=== PATIENT | female | born 1990 | race Caucasian/White ===

== ENCOUNTER 2018-06-26 23:44 | Emergency (ER) | payer MEDICAID ==
[~2018-06-26] VITALS: Ht 165.1 cm; Wt 105.3 kg
[~2018-06-26 23:44] MED LIST: CLIN150C8 PO
[2018-06-27] MEDS ORDERED: HYDROcodone/acetaminophen 10/325mg tab PO ONE (00:25)
[2018-06-27 00:29] LABS: BASOPHILS # (AUTO) 0.1 X10'3 (0-0.2); BASOPHILS % (AUTO) 0.5 % (0-1); EOSINOPHILS # (AUTO) 0.2 X10'3 (0-0.9); HEMATOCRIT 40.5 % (35.0-45.0); HEMOGLOBIN 13.8 g/dl (12.0-16.0); LYMPHOCYTES # (AUTO) 3.3 X10'3 (1.1-4.8); LYMPHOCYTES % (AUTO) 33.7 % (21-51); MEAN CORPUSCULAR HEMOGLOBIN 30.6 PG (27.0-31.0); MEAN CORPUSCULAR HGB CONC 34.1 % (33.0-36.5); MEAN CORPUSCULAR VOLUME 89.9 FL (78-98); MEAN PLATELET VOLUME 8.4 FL (7.4-10.4); MONOCYTES # (AUTO) 0.5 X10'3 (0-0.9); MONOCYTES % (AUTO) 5.6 % (2-12); NEUTROPHILS # (AUTO) 5.7 X10'3 (1.8-7.7); NEUTROPHILS % (AUTO) 58.2 % (42-75); PLATELET COUNT 271 X10'3 (140-440); RED CELL DISTRIBUTION WIDTH 12.4 % (11.5-14.5); WHITE BLOOD COUNT 9.8 X10'3 (4.5-11.0)
[2018-06-27 00:32] LABS: CLARITY,URINE CLEAR (Clear); COLOR,URINE YELLOW (Yellow); GLUCOSE, URINE NEGATIVE (Neg); KETONES,URINE NEGATIVE (Neg); LEUKOCYTE ESTERASE ,URINE TRACE (Neg); NITRITES, URINE NEGATIVE (Neg); OCCULT BLOOD,URINE TRACE-INTACT (Neg); PROTEIN,URINE NEGATIVE (Neg); UROBILINOGEN,URINE 0.2 E.U/dL (0.2-1.0)
[2018-06-27 00:36] VITALS: BP 138/89
[2018-06-27 00:38] LABS: UA COLLECTION TYPE CLN CATCH MIDSTREAM
[2018-06-27 00:38] LABS: PROTHROMBIN TIME 9.9 SECONDS (9.0-12.0)
[2018-06-27 00:41] LABS: BACTERIA,URINE 2+ /HPF (Neg); SQUAMOUS EPITHELIAL CELL,UR MODERATE /LPF (FEW)
[2018-06-27 00:41] LABS: ALANINE AMINOTRANSFERASE 63 U/L (12-78); ALBUMIN 3.6 G/DL (3.4-5.0); ALBUMIN/GLOBULIN RATIO 1.1 (1.1-1.5); ALKALINE PHOSPHATASE 64 IU/L (46-116); ANION GAP 10 (8-16); ASPARTATE AMINO TRANSFERASE 26 U/L (10-37); BILIRUBIN,TOTAL 0.2 MG/DL (0.1-1.0); BLOOD UREA NITROGEN 13 MG/DL (7-18); BUN/CREATININE RATIO 18.1 (6.6-38.0); CALCIUM 8.7 MG/DL (8.5-10.1); CHLORIDE 103 MMOL/L (99-107); CREATININE 0.72 MG/DL (0.40-0.90); GLUCOSE 98 MG/DL (70-104); LIPASE 151 U/L (73-393); POTASSIUM 3.9 MMOL/L (3.5-5.1); SODIUM 139 MMOL/L (135-145); TOTAL CARBON DIOXIDE 26.1 MMOL/L (24-32); eGFR > 90 ML/MIN
[2018-06-27 00:42] LABS: RBC,URINE 0-2 /HPF (0-2); WBC,URINE 20-30 /HPF (0-4)
[2018-06-27] MEDS ORDERED: ondansetron/PF 4mg/2ml inj IV ONE (00:45)
== END 2018-06-27 01:10 | disposition home or self-care (01) ==
LOC: ER 23:44
DX: R10.30 Lower abdominal pain, unspecified (principal); F12.90 Cannabis use, unspecified, uncomplicated; Z56.0 Unemployment, unspecified; Z88.0 Allergy status to penicillin
CPT/HCPCS: 36415; 80053; 81001; 83690; 85025; 85610; 87088; 99284; J2405

== ENCOUNTER 2019-01-20 14:57 | Emergency (ER) | payer MEDICAID ==
[~2019-01-20] VITALS: Ht 172.7 cm; Wt 75.0 kg
[2019-01-20] MEDS ORDERED: DIPH25CA83 PO (15:38)
[2019-01-20] MEDS ORDERED: PRED20TA PO (15:38)
[2019-01-20] MEDS ORDERED: FAMO40TA73 PO (15:38)
[2019-01-20 15:53] VITALS: BP 120/89
== END 2019-01-20 15:56 | disposition home or self-care (01) ==
LOC: ER 14:57
DX: L23.9 Allergic contact dermatitis, unspecified cause (principal); R09.81 Nasal congestion; R50.9 Fever, unspecified; R05 Cough; F12.90 Cannabis use, unspecified, uncomplicated; Z56.0 Unemployment, unspecified; Z88.0 Allergy status to penicillin; Z79.899 Other long term (current) drug therapy
CPT/HCPCS: 99283

== ENCOUNTER 2023-10-13 05:32 | Outpatient (CLI) | payer MEDICAID ==
[2023-10-13] VITALS (21 sets, daily range): BP systolic 101–121; BP diastolic 66–79; PULSE 64–91
[~2023-10-13 05:32] MED LIST changes: +CLIN-214 PO; -CLIN150C8 PO; +DIPH25CA83 PO; +FAMO40TA73 PO
== END 2023-10-13 23:59 | disposition home or self-care (01) ==
LOC: CARD DIAG 05:32
PROVIDERS: ATTEND Physician Assistant
DX: R55 Syncope and collapse (principal); R20.0 Anesthesia of skin; Z87.898 Personal history of other specified conditions
CPT/HCPCS: 93660